=== PATIENT | female | born 1985 | race Caucasian/White ===

== ENCOUNTER → 2017-07-15 | Outpatient (CLI) | payer MEDICAID ==
[~2017-07-15] MED LIST: IBUP600 PO; OXYC1SOL5 PO; PREN0.01 PO
== END ==
LOC: HPND 13:32
PROVIDERS: ATTEND Obstetrics & Gynecology
DX: O36.63X0 Maternal care for excessive fetal growth, third trimester, not applicable or unspecified (principal); O40.3XX0 Polyhydramnios, third trimester, not applicable or unspecified
CPT/HCPCS: 76816

== ENCOUNTER 2017-07-25 09:58 | Inpatient (IN) | payer MEDICAID ==
[2017-07-25] VITALS (9 sets, daily range): BP systolic 98–110; BP diastolic 44–70; PULSE 66–79; RESP 16–18; TEMP 97.5–98.1; O2SAT 98
[~2017-07-25] VITALS: Ht 165.1 cm; Wt 79.5 kg
[2017-07-25] MEDS ORDERED: LACTATED RINGER'S 1000 ML INJ 1,000 ML IV ONE (10:43)
[2017-07-25] MEDS ORDERED: LACTATED RINGER'S 1000 ML INJ 1,000 ML IV SCH ×2 (11:13→18:32)
[2017-07-25 11:20] LABS: AUTOMATED NEUTROPHIL # 7.5 TH/MM3 (1.8-7.7); BASOPHIL % 0.4 % (0.0-2.0); EOSINOPHIL # 0.2 TH/MM3 (0-0.4); HEMATOCRIT 37.3 % (35.0-46.0); HEMOGLOBIN 12.8 GM/DL (11.6-15.3); LYMPH % 16.9 % (9.0-44.0); LYMPHOCYTE # 1.7 TH/MM3 (1.0-4.8); MEAN CELL VOLUME 81.4 FL (80.0-100.0); MEAN CORPUSCULAR HGB CONC 34.4 % (32.0-36.0); MEAN PLATELET VOLUME 7.7 FL (7.0-11.0); MONO % 5.1 % (0.0-8.0); MONOCYTE # 0.5 TH/MM3 (0-0.9); NEUT % 75.6 % (16.0-70.0); PLATELET COUNT 167 TH/MM3 (150-450); RED BLOOD COUNT 4.58 MIL/MM3 (4.00-5.30); RED CELL DISTRIBUTION WIDTH 17.2 % (11.6-17.2); WHITE BLOOD COUNT 9.9 TH/MM3 (4.0-11.0)
[2017-07-25 11:45] LABS: BACTERIA, URINE OCC /hpf; BILIRUBIN, URINE NEG (NEG); BLOOD, URINE NEG (NEG); GLUCOSE,URINE NEG (NEG); KETONE, URINE NEG (NEG); MUCUS URINE FEW /lpf (OCC); NITRITE,URINE NEG (NEG); SQUAMOUS EPITHELIAL CELL URINE 5 /hpf (0-5); URINE COLOR YELLOW (YELLW/STRAW); URINE LEUKOCYTE ESTERASE MOD (NEG)
[2017-07-25] MEDS ORDERED: CLINDAMYCIN INJ 600 MG in SODIUM CHLORIDE 0.9% INJ 100 ML IV SCH (11:45)
[2017-07-25] MEDS ORDERED: MORPHINE SULFATE PF 5 MG/10 ML VIAL ONE (11:52)
[2017-07-25] MEDS ORDERED: PHENYLEPH/NS 1000 MCG/10 ML SYR IV ONE (12:00)
[2017-07-25] MEDS ORDERED: DEXAMETHASONE SOD PHOS 4 MG/ML VIAL IV ONE (12:00)
[2017-07-25] MEDS ORDERED: ePHEDrine/NS 25 MG/5 ML SYRINGE IV ONE (12:00)
[2017-07-25] MEDS ORDERED: LACTATED RINGER'S 1000 ML INJ 2,000 ML IV ONE (12:00)
[2017-07-25] MEDS ORDERED: ONDANSETRON HCL 4 MG/2 ML VIAL IV ONE (12:00)
[2017-07-25] MEDS ORDERED: OXYTOCIN 10 UNIT/ML AMP IV ONE (12:00)
[2017-07-25] MEDS ORDERED: EPIDURAL-DIPHENHYDRAMINE HCL 50 MG/ML VIAL IV PUSH PRN (12:01)
[2017-07-25] MEDS ORDERED: EPIDURAL-DIPHENHYDRAMINE HCL 50 MG CAP PO PRN (12:01)
[2017-07-25] MEDS ORDERED: EPIDURAL-DO NOT ADMINISTER ANTICOAGULANTS PRN (12:01)
[2017-07-25] MEDS ORDERED: EPIDURAL-NO SYSTEMIC NARCOTICS PRN (12:01)
[2017-07-25] MEDS ORDERED: EPIDURAL-NALOXONE HCL 0.4 MG/ML AMP IV PUSH PRN (12:01)
[2017-07-25] MEDS ORDERED: CITRIC ACID-SODIUM CITRATE LIQ 30 ML UDC PO SCH (12:15)
[2017-07-25] MEDS ORDERED: DEXAMETHASONE SOD PHOS PF 10 MG/ML VIAL ONE (13:04)
[2017-07-25] MEDS ORDERED: ROPIVACAINE 0.5% PF INJ 30 ML VIAL ONE (13:05)
--- NOTE | 2017-07-25 13:25 | HHI.HP ---
HPI Chief Complaint Repeat Date Seen: Jul 25, 2017 Travel History International Travel<30 Days: No Contact w/Intl Traveler<30Days: No Known Affected Area: No History of Present Illness HPI Patient is a 31 year old at 39-1/7 weeks gestation who presents today for repeat . She denies any vaginal bleeding or discharge. No gush or leaking of fluid. Positive movement. History Past Medical History Medical History: Denies Significant Hx Obstetric History Obstetric History 2016 Past Surgical History Narrative Surgical 2016 Family History Family History: Negative Social History Alcohol Use: No Tobacco Use: No Substance Abuse: No Allergies-Medications (Allergen,Severity, Reaction): Coded Allergies: amoxicillin (Unverified Allergy, Severe, Hives, 01/14/17) Home Meds Active Scripts Oxycodone W/ Acetaminophen (Oxycodone/Acetaminophen 5-325 mg/5Ml) 5 mg/325 mg Tab, 2 TAB PO Q4H Y for moderate pain, #30 TAB Prov:Mundo Loving MD 11/24/15 Ibuprofen (Motrin 600 Mg Tab) 600 Mg Tab, 600 MG PO Q6H for Pain Management, # 30 TAB 1 Refill Prov:Mundo Loving MD 11/24/15 Reported Medications Multivit/Min/Fol Ac/Iron/Pren ( Vit ( Plus)) Tab, 1 TAB PO DAILY, TAB 11/23/15 Review of Systems Except as stated in HPI: all other systems reviewed are Neg General / Constitutional: No: Fever, Chills Eyes: No: Blurred Vision, Visual changes HENT: No: Headaches Cardiovascular: No: Chest Pain or Discomfort, Palpitations Respiratory: No: Cough, Short of Breath Gastrointestinal: No: Nausea, Vomiting, Abdominal Pain Genitourinary: No: Dysuria, Hematuria, Pelvic Pain, Discharge, Vaginal Bleeding Musculoskeletal: No: Edema Neurologic: No: Headache Psychiatric: No: Substance Abuse Physical Exam Narrative GENERAL: Well-nourished, well-developed patient. SKIN: Warm and dry. HEAD: Normocephalic and atraumatic. EYES: No scleral icterus. No injection or drainage. ENT: No nasal drainage noted. Mucous membranes pink. Airway patent. NECK: Supple, trachea midline. No JVD. CARDIOVASCULAR: Regular rate and rhythm without murmurs, gallops, or rubs. RESPIRATORY: Breath sounds equal bilaterally. No accessory muscle use. ABDOMEN/GI: Abdomen soft, non-tender, bowel sounds present, no rebound, no guarding Gravid to 39 weeks size GENITOURINARY: External Genitalia: intact and normal in appearance Membranes: intact Uterine Contractions: occasional FHT's: Category: I Baseline: 130 Reactive: + Variability: moderate Decels: none EXTREMITIES: No cyanosis or edema. BACK: Nontender without obvious deformity. No CVA tenderness. NEUROLOGICAL: Awake and alert. Motor and sensory grossly within normal limits. Normal speech. Caprini VTE Risk Assessment Caprini VTE Risk Assessment: No/Low Risk (score <= 1) Caprini Risk Assessment Model Point Value = 1 Point Value = 2 Point Value = 3 Point Value = 5 Age 41-60 Minor surgery BMI > 25 kg/m2 Swollen legs Varicose veins or History of unexplained or recurrent spontaneous Oral contraceptives or hormone replacement Sepsis (< 1 month) Serious lung disease, including pneumonia (< 1 month) Abnormal pulmonary function Acute myocardial infarction Congestive heart failure (< 1 month) History of inflammatory bowel disease Medical patient at bed rest Age 61-74 Arthroscopic surgery Major open surgery (> 45 min) Laparoscopic surgery (> 45 min) Malignancy Confined to bed (> 72 hours) Immobilizing plaster cast Central venous access Age >= 75 History of VTE Family history of VTE Factor V Leiden Prothrombin [id number] Lupus anticoagulant Anticardiolipin antibodies Elevated serum homocysteine Heparin-induced thrombocytopenia Other congenital or acquired thrombophilia Stroke (< 1 month) Elective arthroplasty Hip, pelvis, or leg fracture Acute spinal cord injury (< 1 month) Prophylaxis Regimen Total Risk Factor Score Risk Level Prophylaxis Regimen 0-1 Low Early ambulation 2 Moderate Order ONE of the following: *Sequential Compression Device (SCD) *Heparin 5000 units SQ BID 3-4 Higher Order ONE of the following medications: *Heparin 5000 units SQ TID *Enoxaparin/Lovenox 40 mg SQ daily (WT < 150 kg, CrCl > 30 mL/min) *Enoxaparin/Lovenox 30 mg SQ daily (WT < 150 kg, CrCl > 10-29 mL/min) *Enoxaparin/Lovenox 30 mg SQ BID (WT < 150 kg, CrCl > 30 mL/min) AND/OR *Sequential Compression Device (SCD) 5 or more Highest Order ONE of the following medications: *Heparin 5000 units SQ TID (Preferred with Epidurals) *Enoxaparin/Lovenox 40 mg SQ daily (WT < 150 kg, CrCl > 30 mL/min) *Enoxaparin/Lovenox 30 mg SQ daily (WT < 150 kg, CrCl > 10-29 mL/min) *Enoxaparin/Lovenox 30 mg SQ BID (WT < 150 kg, CrCl > 30 mL/min) AND *Sequential Compression Device (SCD) Data Data Vital Signs Reviewed: Yes Orders Orders Admit To Inpatient (07/25/17 ) Code Status (07/25/17 10:43) Vital Signs (Adult) .ON ADMISSION (07/25/17 10:43) Activity Oob Ad Fabi (07/25/17 10:43) Heart (07/25/17 10:43) Urinary Catheter Management AMAN.Q8H (07/25/17 10:43) ^ Preps (07/25/17 10:43) Scd / Alcon / Foot Pump AMAN.QSHIFT (07/25/17 10:43) ^ Ultrasound For Locatio (07/25/17 10:43) Diet Npo (07/25/17 Lunch) Lactated Ringer's 1000 Ml Inj (Lr 1000 M (07/25/17 10:43) Lactated Ringer's 1000 Ml Inj (Lr 1000 M (07/25/17 11:13) Citric Acid-Sodium Citrate Liq (Bicitra (07/25/17 12:15) Type And Screen (07/25/17 10:43) Complete Blood Count With Diff (07/25/17 10:43) Urinalysis - C+S If Indicated (07/25/17 10:43) Drug Screen, Random Urine (07/25/17 10:43) Clindamycin Inj (Cleocin Inj) (07/25/17 11:45) Inpatient Certification (07/25/17 ) Specimen To Be Collected PRN (07/25/17 10:43) Specimen To Be Collected PRN (07/25/17 10:43) Morphine Pf Inj (Duramorph Pf 0.5 Mg/Ml (07/25/17 11:52) Dexamethasone Pf Inj (Decadron Pf Inj) (07/25/17 13:04) Ropivacaine 0.5% Pf Inj (Naropin 0.5% Pf (07/25/17 13:05) Group B Strep: Negative Labs Laboratory Tests Test 07/25/17 10:15 07/25/17 10:30 Urine Color YELLOW Urine Turbidity HAZY Urine pH 7.0 Urine Specific Norman 1.022 Urine Protein 30 Urine Glucose (UA) NEG Urine Ketones NEG Urine Occult Blood NEG Urine Nitrite NEG Urine Bilirubin NEG Urine Urobilinogen LESS THAN 2.0 Urine Leukocyte Esterase MOD Urine RBC LESS THAN 1 Urine WBC 2 Urine Squamous Epithelial Cells 5 Urine Bacteria OCC Urine Mucus FEW Microscopic Urinalysis Comment CULT NOT INDICATED Urine Opiates Screen NEG Urine Barbiturates Screen NEG Urine Amphetamines Screen NEG Urine Benzodiazepines Screen NEG Urine Cocaine Screen NEG Urine Cannabinoids Screen NEG White Blood Count 9.9 Red Blood Count 4.58 Hemoglobin 12.8 Hematocrit 37.3 Mean Corpuscular Volume 81.4 Mean Corpuscular Hemoglobin 28.0 Mean Corpuscular Hemoglobin Concent 34.4 Red Cell Distribution Width 17.2 Platelet Count 167 Mean Platelet Volume 7.7 Neutrophils (%) (Auto) 75.6 Lymphocytes (%) (Auto) 16.9 Monocytes (%) (Auto) 5.1 Eosinophils (%) (Auto) 2.0 Basophils (%) (Auto) 0.4 Neutrophils # (Auto) 7.5 Lymphocytes # (Auto) 1.7 Monocytes # (Auto) 0.5 Eosinophils # (Auto) 0.2 Basophils # (Auto) 0.0 CBC Comment DIFF FINAL Differential Comment Assessment/Plan Assessment and Plan 31 year old at 39-1/7 weeks gestation. 1. IUP- Category I tracing, reassuring. 2. Repeat . 3. GBS negative. dw Tamar Fournier MD, R3 Jul 25, 2017 13:25
--- NOTE | 2017-07-25 13:34 | PD.OP ---
Operative Report Date of Surgery: Jul 25, 2017 Preoperative Diagnosis: Postoperative Diagnosis: Procedure: Repeat Low Transverse Section Anesthesia: Spinal Surgeon: Mundo Loving MD Rotary Rig Engine Operator(s): Cassie Posey and Josi Dillon Resident Surgeon: Tamar Dobbs MD Operation and Findings: PREOPERATIVE DIAGNOSIS 1. Intrauterine at 39-1/7 weeks gestation. 2. Repeat POSTOPERATIVE DIAGNOSIS 1. Intrauterine at 39-1/7 weeks gestation. 2. Repeat PROCEDURE Repeat low transverse section. FINDINGS: Infant male weighing 4290g. Apgars 9/9. Normal fallopian tubes, ovaries, and uterus. ANESTHESIA Spinal. SURGEON Mundo Loving MD CO-SURGEON Tamar Dobbs MD, R3 COMPLICATIONS None. COUNTS Correct. ESTIMATED BLOOD LOSS 600 cc. FLUIDS Crystalloids. CONDITION The patient tolerated the procedure well and went to the recovery room in good condition. PROCEDURE IN DETAIL Under an adequate level of anesthesia, the patient was prepped and draped for abdominal surgery. A Pfannenstiel incision was made, the old incision removed and the incision carried down to the fascia. The fascia was taken off the rectus muscle by blunt and sharp dissection. The rectus muscles were spread bluntly and the peritoneum was entered under direct vision without difficulty. The incision was extended with care to avoid the urinary bladder. A bladder blade was placed and a bladder flap created in the usual fashion. The uterine incision was made in a transverse manner along the lower uterine segment. It was taken down in the midline until the intrauterine cavity was entered. A mild amount of clear fluid was noted. The head was grasped and with fundal pressure the head was delivered without difficulty. The rest of the body was delivered without complications. The cord was doubly clamped and cut after 45 seconds of delayed cord clamping and the handed to the resuscitation team present. The placentas were delivered manually. The uterus was curettaged thrice with a wet lap. The uterine incision was then repaired with 0-0 Vicryl in a running locking fashion, with the second layer imbricating the first. Hemostasis was excellent. The cul-de-sac and gutters were cleaned of blood and debris. The uterus was delivered back into the abdomen. The rectus muscles were reapproximated with 0 Vicryl in a running fashion. The fascia was repaired in a running fashion with 0 Vicryl and irrigated. The subcu was repaired with 3-0 Vicryl in two layers. The skin was repaired with a 4-0 Monocryl in a subcuticular manner. The wound was sterilely dressed with a Primapore dressing. The patient tolerated the procedure well and went to the recovery room in satisfactory condition. Tamar Dobbs MD, R3 Jul 25, 2017 13:33
[2017-07-25] MEDS ORDERED: OXYTOCIN 30 UNITS-500ML PREMIX 500 ML IV ONE ×2 (13:45→14:00)
[2017-07-25] MEDS ORDERED: oxyCODONE/ACETAMINOPHEN 5 MG/325 MG TAB PO PRN (13:45)
[2017-07-25] MEDS ORDERED: DOCUSATE SODIUM 50 MG/SENNA 8.6 MG TAB PO PRN (13:45)
[2017-07-25] MEDS ORDERED: ACETAMINOPHEN 325 MG TAB PO PRN (13:45)
[2017-07-25] MEDS ORDERED: ZOLPIDEM TARTRATE 5 MG TAB PO PRN (13:45)
[2017-07-25] MEDS ORDERED: SODIUM CHLORIDE 0.9% FLUSH 10 ML FLUSH IV FLUSH PRN (13:45)
[2017-07-25] MEDS ORDERED: ONDANSETRON HCL 4 MG/2 ML VIAL IV PUSH PRN (13:45)
[2017-07-25] MEDS ORDERED: CLINDAMYCIN 600 MG/NS PREMIX 50 ML IV SCH (20:00)
[2017-07-25] MEDS: SODIUM CHLORIDE 0.9% FLUSH 10 ML FLUSH IV FLUSH SCH (23:30)
[2017-07-25] MEDS ORDERED: OXYTOCIN 30 UNITS-500ML PREMIX 500 ML IV PRN (23:45)
[2017-07-26 01:15] VITALS: BP 101/62; PULSE 70; RESP 18; TEMP 97.9
[2017-07-26] MEDS ORDERED: AMMONIA AROMATIC INHALANT 0.33 ML ONE (01:21)
[2017-07-26] MEDS: IBUPROFEN 600 MG TAB PO PRN ×4 (03:22→22:25)
[2017-07-26] MEDS: SIMETHICONE 80 MG CHEWABLE TAB PO PRN ×2 (03:22→16:22)
[2017-07-26] MEDS ORDERED: CLINDAMYCIN 600 MG/NS PREMIX 50 ML IV SCH (05:00)
[2017-07-26 06:09] LABS: AUTOMATED NEUTROPHIL # 11.3 TH/MM3 (1.8-7.7); BASOPHIL % 0.2 % (0.0-2.0); EOSINOPHIL % 0.2 % (0.0-4.0); HEMATOCRIT 31.3 % (35.0-46.0); HEMOGLOBIN 10.7 GM/DL (11.6-15.3); LYMPH % 12.2 % (9.0-44.0); LYMPHOCYTE # 1.7 TH/MM3 (1.0-4.8); MEAN CELL VOLUME 81.2 FL (80.0-100.0); MEAN CORPUSCULAR HEMOGLOBIN 27.6 PG (27.0-34.0); MEAN PLATELET VOLUME 7.8 FL (7.0-11.0); MONO % 5.3 % (0.0-8.0); MONOCYTE # 0.7 TH/MM3 (0-0.9); NEUT % 82.1 % (16.0-70.0); PLATELET COUNT 168 TH/MM3 (150-450); RED BLOOD COUNT 3.85 MIL/MM3 (4.00-5.30); RED CELL DISTRIBUTION WIDTH 16.9 % (11.6-17.2); WHITE BLOOD COUNT 13.8 TH/MM3 (4.0-11.0)
--- NOTE | 2017-07-26 07:57 | HHI.OB ---
Subjective Post Operative Day: 1 Remarks doing well, ambulating, voiding, TPO, pain controlled, no n/v, VB < menses Objective Vitals/I&O Vital Signs Date Time Temp Pulse Resp B/P (MAP) Pulse Ox O2 Delivery O2 Flow Rate FiO2 07/26/17 01:15 97.9 70 18 101/62 (75) 07/25/17 19:45 98.1 71 18 100/64 (76) 07/25/17 16:00 98 07/25/17 16:00 110/70 (83) 07/25/17 15:20 97.5 68 18 106/69 (81) 07/25/17 14:44 76 16 104/69 (81) 07/25/17 14:30 73 16 98/63 (75) 07/25/17 14:14 75 18 98/56 (70) 07/25/17 14:00 66 16 100/44 (62) 07/25/17 13:45 77 16 100/55 (70) 07/25/17 13:30 97.6 07/25/17 13:30 79 16 99/60 (73) Result Diagram: 07/26/17 05 Objective Remarks GENERAL: Well-nourished, well-developed patient. CARDIOVASCULAR: Regular rate and rhythm without murmurs, gallops, or rubs. RESPIRATORY: Breath sounds equal bilaterally. No accessory muscle use. ABDOMEN/GI: Abdomen soft, non-tender, bowel sounds present. bandage: Clean, dry and intact. Fundus: Firm, non-tender at umbilicus. GENITOURINARY: Light to moderate bleeding. EXTREMITIES: No cyanosis or edema, non-tender, without signs of DVT. Medications and IVs Current Medications Medications (Trade) Dose Ordered Sig/Lindsey Route Start Time Stop Time Status Last Admin Lactated Ringer's 1,000 ml @ 100 mls/hr Q10H IV 07/25/17 18:32 07/26/17 14:31 07/25/17 23:30 Oxytocin 500 ml @ 100 mls/hr UNSCH X1 PRN IV 07/25/17 23:45 07/26/17 23:44 (NS Flush) 2 ml BID IV FLUSH 07/25/17 21:00 07/25/17 23:30 (NS Flush) 2 ml UNSCH PRN IV FLUSH 07/25/17 13:45 (Mylicon Chew) 80 mg QID PRN PO 07/25/17 13:45 07/26/17 03:22 (Tylenol) 650 mg Q6H PRN PO 07/25/17 13:45 (Motrin) 600 mg Q6H PRN PO 07/25/17 13:45 07/26/17 03:22 (Percocet 5-325 Mg) 1 tab Q4H PRN PO 07/25/17 13:45 (Percocet 5-325 Mg) 2 tab Q4H PRN PO 07/25/17 13:45 (Billie-Colace) 2 tab Q12H PRN PO 07/25/17 13:45 (Ambien) 5 mg HS PRN PO 07/25/17 13:45 (M-M-R Ii Inj) 0.5 ml ONCE ONCE SQ 07/26/17 16:00 07/26/17 16:01 (Boostrix Inj) 0.5 ml ONCE ONCE IM 07/26/17 16:00 07/26/17 16:01 (Zofran Inj) 4 mg Q6H PRN IV PUSH 07/25/17 13:45 (Stuartnatal Plus 3 ) 1 tab DAILY PO 07/26/17 09:00 Miscellaneous Information NO SYSTEMIC NARCOTICS TO BE GIVEN FO... UNSCH PRN .XX 07/25/17 12:01 07/26/17 12:00 (Narcan Inj) 0.4 mg UNSCH PRN IV PUSH 07/25/17 12:01 07/26/17 12:00 (Benadryl Inj) 25 mg Q6H PRN IV PUSH 07/25/17 12:01 07/26/17 12:00 (Benadryl) 50 mg Q6H PRN PO 07/25/17 12:01 07/26/17 12:00 Miscellaneous Information ALL NURSING DEPARTMENTS UNSCH PRN .XX 07/25/17 12:01 07/26/17 12:00 Assessment/Plan Assessment and Plan 31 year old s/p scheduled RLTCS at 39-1/7 weeks 1. POD #1: AF, VSS, am Hb appropriate, anticipate d/c home in next 48hrs. - male , desires circ, will have done friday vs as outpatient. UP- Category I tracing, reassuring. Dileep Serrato MD Jul 26, 2017 07:57
--- NOTE | 2017-07-26 07:58 | HHI.DCPOC ---
Discharge Care Plan Diagnosis: (1) delivery delivered Your Health Problems Are: delivery Report Symptoms to Your Doctor -Temperature above 100.5 degrees -Redness, of incision or excessive or foul smelling drainage -Unusual pain or calf pain -Increased vaginal bleeding -Painful or difficulty urinating -Feelings of extreme sadness or anxiety after 2 weeks Goals to Promote Your Health * To prevent worsening of your condition and complications * To maintain your health at the optimal level Directions to Meet Your Goals Take your medications as prescribed Follow your dietary instruction Follow activity as directed Ensure plenty of rest for recovery Drink fluids for hydration Keep your appointments as scheduled Take your immunizations and boosters as scheduled If your symptoms worsen call your PCP, if no PCP go to Urgent Care Center or Emergency Room Smoking is Dangerous to Your Health. Avoid second hand smoke Call the 24-hour crisis hotline for domestic abuse at Dileep Serrato MD Jul 26, 2017 07:58
[2017-07-26 08:00] VITALS: BP 99/58; PULSE 61; RESP 18; TEMP 98; O2SAT 96
[2017-07-26] MEDS: MULTIVIT/MIN/PREN/FOL AC/IRON PRENATAL TAB PO SCH (09:15)
[2017-07-26 12:00] VITALS: BP 98/60; PULSE 69; RESP 18; TEMP 97.8; O2SAT 99
[2017-07-26] MEDS: oxyCODONE/ACETAMINOPHEN 5 MG/325 MG TAB PO PRN ×3 (12:01→20:32)
[2017-07-26] MEDS ORDERED: DIPHTH/TETANUS/ACEL PERTUSSIS (BOOSTER) 0.5 ML VIAL/PFS IM ONE (16:00)
[2017-07-26] MEDS ORDERED: MEASLES, MUMPS, RUBELLA VACCINE 0.5 ML VIAL SQ ONE (16:00)
[2017-07-26 19:20] VITALS: BP 103/57; PULSE 72; RESP 17; TEMP 97.8; O2SAT 98
[2017-07-27] MEDS: IBUPROFEN 600 MG TAB PO PRN ×2 (05:27→10:12)
[2017-07-27] MEDS: oxyCODONE/ACETAMINOPHEN 5 MG/325 MG TAB PO PRN ×2 (05:27→10:12)
[2017-07-27] MEDS ORDERED: PERC5TAB12 PO (06:59)
[2017-07-27] MEDS ORDERED: IBUP-232 PO (06:59)
--- NOTE | 2017-07-27 07:01 | HHI.OB ---
Subjective Post Operative Day: 2 Remarks doing well, ambulating, voiding, pain controlled, VB < cycle Objective Vitals/I&O Vital Signs Date Time Temp Pulse Resp B/P (MAP) Pulse Ox O2 Delivery O2 Flow Rate FiO2 07/26/17 19:20 97.8 72 17 103/57 (72) 98 07/26/17 12:00 97.8 69 18 99 07/26/17 12:00 98/60 (73) 07/26/17 08:00 61 18 99/58 (72) 96 07/26/17 08:00 98.0 Result Diagram: 07/26/17 0522 Objective Remarks GENERAL: Well-nourished, well-developed patient. CARDIOVASCULAR: Regular rate and rhythm without murmurs, gallops, or rubs. RESPIRATORY: Breath sounds equal bilaterally. No accessory muscle use. ABDOMEN/GI: Abdomen soft, non-tender, bowel sounds present. incision: Clean, dry and intact. Fundus: Firm, non-tender at umbilicus. GENITOURINARY: Light to moderate bleeding. EXTREMITIES: No cyanosis or edema, non-tender, without signs of DVT. Medications and IVs Current Medications Medications (Trade) Dose Ordered Sig/Lindsey Route Start Time Stop Time Status Last Admin (NS Flush) 2 ml BID IV FLUSH 07/25/17 21:00 07/25/17 23:30 (NS Flush) 2 ml UNSCH PRN IV FLUSH 07/25/17 13:45 (Mylicon Chew) 80 mg QID PRN PO 07/25/17 13:45 07/26/17 16:22 (Tylenol) 650 mg Q6H PRN PO 07/25/17 13:45 (Motrin) 600 mg Q6H PRN PO 07/25/17 13:45 07/27/17 05:27 (Percocet 5-325 Mg) 1 tab Q4H PRN PO 07/25/17 13:45 07/27/17 05:27 (Percocet 5-325 Mg) 2 tab Q4H PRN PO 07/25/17 13:45 (Billie-Colace) 2 tab Q12H PRN PO 07/25/17 13:45 07/26/17 22:24 (Ambien) 5 mg HS PRN PO 07/25/17 13:45 (Zofran Inj) 4 mg Q6H PRN IV PUSH 07/25/17 13:45 (Stuartnatal Plus 3 ) 1 tab DAILY PO 07/26/17 09:00 07/26/17 09:15 Assessment/Plan Assessment and Plan 31 year old s/p scheduled RLTCS at 39-1/7 weeks 1. POD #1: AF, VSS, d/c home, discussed / operative precautions, expectations and follow up. - male , desires circ, will arrange as an outpatient. Dileep Serrato MD Jul 27, 2017 07:01
[2017-07-27] MEDS: SODIUM CHLORIDE 0.9% FLUSH 10 ML FLUSH IV FLUSH SCH (07:20)
[2017-07-27] MEDS: MULTIVIT/MIN/PREN/FOL AC/IRON PRENATAL TAB PO SCH (10:12)
== END 2017-07-27 10:42 | disposition home or self-care (01) | DRG 766 ==
LOC: H2EB 09:58 → H1EA 14:58
PROVIDERS: ADMIT Obstetrics & Gynecology; ATTEND Obstetrics & Gynecology
PROC: 10D00Z1 Extraction of Products of Conception, Low, Open Approach (ICD-10-PCS; principal; 2017-07-25)
DX: O34.211 Maternal care for low transverse scar from previous cesarean delivery (principal); Z37.0 Single live birth; Z3A.39 39 weeks gestation of pregnancy
CPT/HCPCS: 59025; 80307; 81001; 85025; 86850; 86900; 86901; 90715; J1100; J2274; J2370; J2405; J2590; J2795; J7120

== ENCOUNTER 2017-08-02 19:33 | Emergency (ER) | payer MEDICAID ==
[~2017-08-02] VITALS: Ht 165.1 cm; Wt 75.0 kg
[~2017-08-02 19:33] MED LIST changes: +IBUP-232 PO; -IBUP600 PO; -OXYC1SOL5 PO; +PERC5TAB12 PO
[2017-08-02 19:51] VITALS: BP 109/64; PULSE 56; RESP 18; TEMP 97.7; O2SAT 99
[2017-08-02] MEDS ORDERED: CLINDAMYCIN 150 MG CAP PO ONE (20:15)
[2017-08-02] MEDS ORDERED: CLIN150C14 PO (20:15)
--- NOTE | 2017-08-02 20:15 | PD ---
HPI Chief Complaint: Wound/Suture/Staple Re-Check Time Seen by Provider: 19:56 Travel History International Travel<30 days: No Contact w/Intl Traveler<30days: No Traveled to known affect area: No History of Present Illness HPI 31-year-old female complained of pain and swelling redness around in incisional site. Patient started having increase in pain on the lateral aspect of the incisional site 2 days ago. Patient has increase in pain and swelling and redness today. Patient stated the pain is sharp pain localized to the lateral aspect of surgical site. Patient denies any pain radiation. Patient denies any fever or chills. Patient denies any nausea vomiting diarrhea. Patient states that she has mild dry cough. Patient status post C- section a week ago. Patient is breast-feeding. Patient has appointment to follow-up with Dr. Loving, her OB in 2 days. PFSH Past Medical History Medical History: Denies Significant Hx Diminished Hearing: No Immunizations Current: No ?: Not Past Surgical History Section: Yes (X2) Social History Alcohol Use: No Tobacco Use: No Substance Use: No Allergies-Medications (Allergen,Severity, Reaction): Coded Allergies: amoxicillin (Unverified Allergy, Severe, Hives, 01/14/17) Reported Meds & Prescriptions Reported Meds & Active Scripts Active Percocet (Oxycodone-Acetaminophen) 5-325 mg Tab 1 Tab PO Q4H PRN Ibuprofen 600 Mg Tab 600 Mg PO Q6H PRN Reported Vit ( Plus) (Prenat Multivit/Bolivar/Iron/Folic Ac) 27 Mg Iron-1 Mg Tab 1 Tab PO DAILY Review of Systems General / Constitutional: No: Fever Eyes: No: Visual changes HENT: No: Headaches Cardiovascular: No: Chest Pain or Discomfort Respiratory: No: Shortness of Breath Gastrointestinal: No: Abdominal Pain Genitourinary: No: Dysuria Musculoskeletal: No: Pain Skin: No Rash Neurologic: No: Weakness Psychiatric: No: Depression Endocrine: No: Polydipsia Hematologic/Lymphatic: No: Easy Bruising Physical Exam Narrative GENERAL: Well-nourished, well-developed patient. SKIN: Focused skin assessment warm/dry. HEAD: Normocephalic. EYES: No scleral icterus. No injection or drainage. NECK: Supple, trachea midline. No JVD or lymphadenopathy. CARDIOVASCULAR: Regular rate and rhythm without murmurs, gallops, or rubs. RESPIRATORY: Breath sounds equal bilaterally. No accessory muscle use. GASTROINTESTINAL: Abdomen soft, non-tender, nondistended. MUSCULOSKELETAL: No cyanosis, or edema. BACK: Nontender without obvious deformity. No CVA tenderness. incisional site looks clean and dry. No discharge. No dehiscence. Mild redness and tenderness associated with the lateral aspect of surgical site. No induration noted. Data Data Last Documented VS Vital Signs Date Time Temp Pulse Resp B/P (MAP) Pulse Ox O2 Delivery O2 Flow Rate FiO2 08/02/17 19:51 97.7 56 18 109/64 (79) 99 Orders Orders Clindamycin (Cleocin) (08/02/17 20:15) [facility] Medical Decision Making Medical Screen Exam Complete: Yes Emergency Medical Condition: Yes Differential Diagnosis Differential diagnosis including cellulitis, abscess. Narrative Course 31-year-old female with redness swelling tenderness around the incisional site. Status post one week ago. Clindamycin 300 mg p.o. given. I spoke with Dr. Loving, her OB. Agreed with the plan. Diagnosis Primary Impression: Cellulitis Qualified Codes: L03.311 - Cellulitis of abdominal wall Additional Impression: Status post Patient Instructions: General Instructions Additional Instructions: Clindamycin as directed. Follow-up with OB as directed. Return if worse. Med/Other Pt SpecificInfo: Prescription(s) given Scripts Clindamycin (Clindamycin) 150 Mg Cap 300 MG PO QID for Infection, #80 CAP 0 Refills Prov: Mitchell Slater MD 08/02/17 Disposition: 01 DISCHARGE HOME Condition: Stable Mitchell Slater MD Aug 02, 2017 20:15
== END 2017-08-02 20:34 | disposition home or self-care (01) ==
LOC: NEPE 19:33
DX: O86.0 Infection of obstetric surgical wound (principal); L03.311 Cellulitis of abdominal wall; Z88.0 Allergy status to penicillin
CPT/HCPCS: 99283

== ENCOUNTER 2017-08-22 13:23 | Day surgery (SDC) | payer MEDICAID ==
[~2017-08-22 13:23] MED LIST changes: +CLIN150C14 PO
[2017-08-22 15:30] VITALS: BP 123/69; PULSE 59; RESP 16; TEMP 98.9
[2017-08-22 15:45] VITALS: BP 132/72; PULSE 72; RESP 16
[2017-08-22 15:55] VITALS: BP 129/69; PULSE 71; RESP 16
--- NOTE | 2017-08-22 16:23 | RADRPT ---
EXAM DATE/TIME: 08/22/2017 14:14 [facility] COMPARISON: No previous studies available for comparison. INDICATIONS : Abscess drainage at scar. MEDICAL HISTORY : . SURGICAL HISTORY : section. ENCOUNTER: Initial ACUITY: 4 - 6 days PAIN SCORE: 4/10 LOCATION: Left lower quadrant FLUID: Total volume of 1 cc of BLOOD fluid was removed. A single droplet of yellow puslike fluid noted. Fluid was sent to lab for ordered studies. TECHNIQUE: 1. Ultrasound guidance for abscess drainage. 2. Abscess drainage. The risks, benefits and alternatives to the procedure were explained and verbal and written consent w as obtained. The site was prepped in sterile fashion. Full sterile technique was used, including ca p, mask, sterile gloves and gown and a large sterile sheet. Hand hygiene and 2% chlorhexidine and/or betadine/alcohol prep was utilized per protocol for cutaneous antisepsis. The skin and subcutaneous tissues were infiltrated with local anesthetic solution. Sterile gel and sterile probe cover were u tilized for ultrasound guidance. With the patient on the ultrasound table, ultrasound imaging was used to select the most appropriate approach for drainage. A dermatotomy was made with an 11 blade scalpel. A catheter was introduced i nto the cavity and fluid was collected. The patient tolerated the procedure well and the left the ultrasound suite in stable condition. CONCLUSION: Aspiration of very minimal hemorrhage. There may have been a droplet of yellow puslike fluid. Umair Rosales MD on August 22, 2017 at 16:19 Board Certified Radiologist. This report was verified electronically.
== END 2017-08-22 16:00 | disposition home or self-care (01) ==
LOC: HRAD 13:23
PROVIDERS: ATTEND Obstetrics & Gynecology
DX: O86.0 Infection of obstetric surgical wound (principal); B95.62 Methicillin resistant Staphylococcus aureus infection as the cause of diseases classified elsewhere
CPT/HCPCS: 10160; 75989; 87070; 87186; 87205